=== PATIENT | female | born 1980 | race Caucasian/White ===

== ENCOUNTER 2020-01-07 21:25 | Emergency (ER) | payer OTHER ==
--- NOTE | 2020-01-07 21:38 | ED ---
Chest Pain HPI - General Stated Complaint: Chest Pain Time Seen by Provider: 01/07/20 21:33 Source: RN notes reviewed, old records reviewed - History of Present Illness Initial Comments: This is a 39-year-old female DF for evaluation of some chest pain. Patient presents by EMS the patient nitro and aspirin. Patient has history of CAD states history of COPD high blood pressure cholesterol chest pain is now resolved. No shortness of breath or diaphoresis. Patient admits to marijuana and alcohol use prior to chest pain beginning MD Complaint: chest pain -: minutes(s) Onset: during rest, associated with drug use Pain Location: substernal Severity: mild Severity scale (1-10): 3 Quality: tightness Consistency: now resolved Improves With: nothing Worsens With: nothing Anginal Symptoms: other (None) Other Symptoms: palpitations Treatments Prior to Arrival: aspirin, nitroglycerin - Related Data Home Medications Medication Instructions Recorded Confirmed Atorvastatin [Lipitor] 40 mg PO DAILY 01/07/20 01/07/20 Metoprolol Tartrate [Lopressor] 12.5 mg PO DAILY 01/07/20 01/07/20 Previous Rx's Medication Instructions Recorded Aspirin 81 mg PO DAILY #30 chew 10/31/15 Allergies Allergy/AdvReac Type Severity Reaction Status Date / Time epinephrine Allergy Unknown Verified 01/07/20 22:38 [From Epi E-Z Pen] meperidine HCl [From Demerol] Allergy Unknown Verified 01/07/20 22:38 venom-honey bee Allergy Unknown Verified 01/07/20 22:38 [bee venom (honey bee)] Review of Systems ROS Statement: Those systems with pertinent positive or pertinent negative responses have been documented in the HPI. ROS Other: All systems not noted in ROS Statement are negative. EKG Findings - EKG Comments: EKG Findings:: EKG is normal sinus rhythm rate 72 IA 158 QRS 82 QTC 429 Past Medical History Past Medical History: Coronary Artery Disease (CAD), Cancer, Hyperlipidemia, Hypertension Additional Past Medical History / Comment(s): breast cancer, hypoglycemia History of Any Multi-Drug Resistant Organisms: None Reported Past Surgical History: Adenoidectomy, Section, Cholecystectomy, Heart Catheterization With Stent, Tonsillectomy Past Anesthesia/Blood Transfusion Reactions: No Reported Reaction Past Psychological History: No Psychological Hx Reported Past Alcohol Use History: Occasional Past Drug Use History: Marijuana - Past Family History Mother Family Medical History: COPD Additional Family Medical History / Comment(s): drug addict, overdosed approximately 4 years ago General Exam General appearance: alert, in no apparent distress, anxious Head exam: Present: atraumatic, normocephalic, normal inspection Eye exam: Present: normal appearance, PERRL, EOMI. Absent: scleral icterus, conjunctival injection, periorbital swelling ENT exam: Present: normal exam, mucous membranes moist Neck exam: Present: normal inspection. Absent: tenderness, meningismus, lymphadenopathy Respiratory exam: Present: normal lung sounds bilaterally. Absent: respiratory distress, wheezes, rales, rhonchi, stridor Cardiovascular Exam: Present: regular rate, normal rhythm, normal heart sounds. Absent: systolic murmur, diastolic murmur, rubs, gallop, clicks GI/Abdominal exam: Present: soft, normal bowel sounds. Absent: distended, tenderness, guarding, rebound, rigid Extremities exam: Present: normal inspection, full ROM, normal capillary refill. Absent: tenderness, pedal edema, joint swelling, calf tenderness Back exam: Present: normal inspection Neurological exam: Present: alert, oriented X3, CN II-XII intact Psychiatric exam: Present: normal affect, normal mood Skin exam: Present: warm, dry, intact, normal color. Absent: rash Course Vital Signs 01/07/20 01/07/20 21:39 23:11 Temperature 99.3 F Pulse Rate 76 84 Respiratory 18 20 Rate Blood Pressure 111/84 109/88 O2 Sat by Pulse 97 97 Oximetry - Reevaluation(s) Reevaluation #1: Medical record is reviewed Pain is resolved Patient informed of results questions answered Patient offered observation refusing hospital admission Chest Pain MDM - [facility] 39-year-old female DEL with chest pain, patient admits to smoking some weed and drinking alcohol prior to starting of chest pain. Patient has history of CAD high blood pressure cholesterol, refusing inpatient admission Disposition Clinical Impression: Chest pain Disposition: HOME SELF-CARE Condition: Undetermined Instructions (If sedation given, give patient instructions): Chest Pain (ED) Is patient prescribed a controlled substance at d/c from ED?: No Referrals: Vern Win DO [Primary Care Provider] - 1-2 days
[2020-01-07 21:42] VITALS: TEMP 99.3
[2020-01-07 22:11] LABS: Basophils # (A) 0.1 k/uL (0-0.2); Basophils % (A) 0 %; Eosinophils # (A) 0.2 k/uL (0-0.7); Eosinophils % (A) 2 %; HCT 45.3 % (34.0-46.0); HGB 15.3 gm/dL (11.4-16.0); Lymphocytes # (A) 1.9 k/uL (1.0-4.8); Lymphocytes % (A) 12 %; MCH 31.9 pg (25.0-35.0); MCHC 33.8 g/dL (31.0-37.0); MCV 94.4 fL (80.0-100.0); Mean Platelet Volume 8.2; Monocytes # (A) 0.6 k/uL (0-1.0); Monocytes % (A) 4 %; Neutrophils # (A) 12.4 k/uL (1.3-7.7); Neutrophils % (A) 81 %; Platelet Count 319 k/uL (150-450); RDW 12.4 % (11.5-15.5); WBC 15.3 k/uL (3.8-10.6)
[2020-01-07 22:17] LABS: ALT 13 U/L (4-34); AST 20 U/L (14-36); African American GFR (CKD) >90 (>60 ml/min/1.73 sqM); Albumin 3.7 g/dL (3.5-5.0); Alkaline Phosphatase 65 U/L (38-126); Anion Gap 7 mmol/L; Blood Urea Nitrogen 11 mg/dL (7-17); Calcium 8.8 mg/dL (8.4-10.2); Carbon Dioxide 20 mmol/L (22-30); Chloride 107 mmol/L (98-107); Glucose 106 mg/dL (74-99); INR 0.9 (<1.2); Magnesium 1.9 mg/dL (1.6-2.3); Non-African American GFR(CKD) >90 (>60 ml/min/1.73 sqM); Partial Thromboplastin Time 22.4 sec (22.0-30.0); Potassium 4.1 mmol/L (3.5-5.1); Prothrombin Time 9.6 sec (9.0-12.0); Sodium 134 mmol/L (137-145); Total Bilirubin 0.6 mg/dL (0.2-1.3); Total Protein 6.3 g/dL (6.3-8.2)
--- NOTE | 2020-01-07 22:59 | XR ---
EXAMINATION TYPE: XR chest 2V DATE OF EXAM: 01/07/2020 COMPARISON: 10/29/2015 HISTORY: Chest pain TECHNIQUE: FINDINGS: Heart and mediastinum are normal. Lungs are clear. Diaphragm is normal. Bony thorax appears normal. Pulmonary vascularity is normal. IMPRESSION: Normal chest. No change.
[2020-01-07 23:12] VITALS: BP 109/88; PULSE 84; RESP 20
[2020-01-07] MEDS ORDERED: NITROGLYCERIN SL TABS 0.4 MG TAB SUBLINGUAL PRN (23:14)
[2020-01-07] MEDS ORDERED: ALPRAZolam 0.25 MG TAB PO PRN (23:14)
[2020-01-07] MEDS ORDERED: ASPIRIN 81 MG PO STA (23:14)
[2020-01-07] MEDS ORDERED: SODIUM CHLORIDE 0.9% 1,000 ML IV SCH (23:15)
[2020-01-08] MEDS ORDERED: ASPIRIN 325 MG TAB PO SCH (09:00)
[2020-01-08] MEDS ORDERED: METOPROLOL TARTRATE 25 MG TAB PO SCH (09:00)
== END 2020-01-07 23:32 | disposition home or self-care (01) ==
LOC: EC 21:25
DX: R07.89 Other chest pain (principal); I10 Essential (primary) hypertension; E78.5 Hyperlipidemia, unspecified; I25.10 Atherosclerotic heart disease of native coronary artery without angina pectoris; F12.90 Cannabis use, unspecified, uncomplicated; Z79.899 Other long term (current) drug therapy; Z91.030 Bee allergy status; Z88.5 Allergy status to narcotic agent; Z88.6 Allergy status to analgesic agent; Z95.5 Presence of coronary angioplasty implant and graft; Z85.3 Personal history of malignant neoplasm of breast; Z72.89 Other problems related to lifestyle
CPT/HCPCS: 36415; 71046; 80053; 83690; 83735; 83880; 84484; 85025; 85610; 85730; 93005; 99285

== ENCOUNTER 2020-11-03 03:52 | Inpatient (IN) | payer OTHER ==
--- NOTE | 2020-11-03 03:56 | ED ---
Chest Pain HPI - General Stated Complaint: Chest Pain Time Seen by Provider: 11/03/20 03:55 - Related Data Home Medications Medication Instructions Recorded Confirmed Atorvastatin [Lipitor] 40 mg PO DAILY 01/07/20 01/07/20 Metoprolol Tartrate [Lopressor] 12.5 mg PO DAILY 01/07/20 01/07/20 Previous Rx's Medication Instructions Recorded Aspirin 81 mg PO DAILY #30 chew 10/31/15 Allergies Allergy/AdvReac Type Severity Reaction Status Date / Time epinephrine Allergy Unknown Verified 01/07/20 22:38 [From Epi E-Z Pen] meperidine HCl [From Demerol] Allergy Unknown Verified 01/07/20 22:38 venom-honey bee Allergy Unknown Verified 01/07/20 22:38 [bee venom (honey bee)] Review of Systems ROS Statement: Those systems with pertinent positive or pertinent negative responses have been documented in the HPI. ROS Other: All systems not noted in ROS Statement are negative. EKG Findings - EKG Comments: EKG Findings:: EKG shows sinus bradycardia 52 NH 136 QRS 80 QTC 414 Past Medical History Past Medical History: Coronary Artery Disease (CAD), Cancer, Hyperlipidemia, Hypertension Additional Past Medical History / Comment(s): breast cancer, hypoglycemia History of Any Multi-Drug Resistant Organisms: None Reported Past Surgical History: Adenoidectomy, Section, Cholecystectomy, Heart Catheterization With Stent, Tonsillectomy Past Anesthesia/Blood Transfusion Reactions: No Reported Reaction Past Psychological History: No Psychological Hx Reported Past Alcohol Use History: Occasional Past Drug Use History: Marijuana - Past Family History Mother Family Medical History: COPD Additional Family Medical History / Comment(s): drug addict, overdosed approximately 4 years ago Course Vital Signs 11/03/20 11/03/20 03:54 04:17 Temperature 97.1 F L Pulse Rate 55 L 55 L Respiratory 20 18 Rate Blood Pressure 164/101 152/99 O2 Sat by Pulse 99 100 Oximetry Disposition Clinical Impression: Bradycardia, Chest pain, Elevated troponin, Acute non-ST elevation myocardial infarction (NSTEMI) Disposition: ADMITTED IP TO THIS HOSP Condition: Fair Is patient prescribed a controlled substance at d/c from ED?: No Referrals: Vern Win DO [Primary Care Provider] - 1-2 days
[2020-11-03] MEDS ORDERED: ONDANSETRON 4 MG/2 ML VIAL IVP STA (03:58)
[2020-11-03] MEDS ORDERED: LORazepam 2 MG/ML INJ IV STA (03:58)
[2020-11-03 04:21] LABS: Basophils # (A) 0.1 k/uL (0-0.2); Basophils % (A) 1 %; Eosinophils # (A) 0.3 k/uL (0-0.7); Eosinophils % (A) 2 %; HGB 14.4 gm/dL (11.4-16.0); Lymphocytes # (A) 3.3 k/uL (1.0-4.8); Lymphocytes % (A) 26 %; MCH 32.8 pg (25.0-35.0); MCHC 34.4 g/dL (31.0-37.0); MCV 95.4 fL (80.0-100.0); Mean Platelet Volume 8.2; Monocytes # (A) 0.5 k/uL (0-1.0); Monocytes % (A) 4 %; Neutrophils # (A) 8.4 k/uL (1.3-7.7); Neutrophils % (A) 66 %; Platelet Count 318 k/uL (150-450); RDW 12.8 % (11.5-15.5); WBC 12.6 k/uL (3.8-10.6)
[2020-11-03 04:33] LABS: INR 0.9 (<1.2); Partial Thromboplastin Time 23.6 sec (22.0-30.0); Prothrombin Time 9.5 sec (9.0-12.0)
[2020-11-03 04:35] LABS: ALT 12 U/L (4-34); African American GFR (CKD) >90 (>60 ml/min/1.73 sqM); Albumin 3.5 g/dL (3.5-5.0); Alcohol <10 mg/dL; Anion Gap 7 mmol/L; Blood Urea Nitrogen 8 mg/dL (7-17); Calcium 8.6 mg/dL (8.4-10.2); Carbon Dioxide 21 mmol/L (22-30); Chloride 110 mmol/L (98-107); Glucose 134 mg/dL (74-99); Lipase 61 U/L (23-300); Non-African American GFR(CKD) >90 (>60 ml/min/1.73 sqM); Sodium 138 mmol/L (137-145); Total Bilirubin 0.3 mg/dL (0.2-1.3); Total Protein 6.1 g/dL (6.3-8.2)
[2020-11-03 04:48] LABS: AST 21 U/L (14-36); Alkaline Phosphatase 75 U/L (38-126); Magnesium 1.8 mg/dL (1.6-2.3); Phosphorus 3.2 mg/dL (2.5-4.5); Potassium 3.8 mmol/L (3.5-5.1)
[2020-11-03] MEDS ORDERED: NITROGLYCERIN SL TABS 0.4 MG TAB SUBLINGUAL PRN ×2 (04:52→07:00)
[2020-11-03] MEDS ORDERED: MORPHINE SULFATE 4 MG/ML SYRINGE IV PRN (04:52)
[2020-11-03] MEDS ORDERED: HEPARIN SODIUM 1,000 UN/ML (10ML VL) IV ONE (04:52)
[2020-11-03] MEDS ORDERED: ASPIRIN 81 MG PO STA (04:52)
[2020-11-03] MEDS ORDERED: NITROGLYCERIN SL TABS 0.4 MG TAB SUBLINGUAL STA (05:00)
[2020-11-03] MEDS ORDERED: HEPARIN SOD,PORK IN 0.45% NACL 25,000 UNIT in 0.45% NACL 1 250ML.BAG IV SCH (05:00)
--- NOTE | 2020-11-03 05:08 | XR ---
EXAM: XR Chest, 2 Views CLINICAL HISTORY: ITS.REASON XR Reason: Weakness TECHNIQUE: Frontal and lateral views of the chest. COMPARISON: Chest radiograph on 01/07/2020 FINDINGS: Hardware: None. Lungs/pleura: Normal. No focal consolidation. No pleural effusion or pneumothorax. Heart/mediastinum: Normal. No cardiomegaly. Soft tissues: Unremarkable. Bones: No acute fracture. Upper abdomen: Normal. IMPRESSION: No acute disease identified.
--- NOTE | 2020-11-03 05:46 | P.CRDCN ---
History of Present Illness History of present illness: HISTORY OF PRESENTING ILLNESS This is a pleasant 40-year-old with past medical history significant for tobacco abuse, strong family history of coronary artery disease, coronary artery disease status post PCI of RCA 10/28/2015. Patient woke up this morning with substernal chest pressure which felt similar to her DC and therefore presented to emergency department. She denies any associated diaphoresis, shortness breath. She denies any association with any movement. She took 3 nitroglycerin at home without any improvement. Blood work showed white blood cell count 12.6, hemoglobin 14.4, creatinine 0.47, glucose 134, troponin 0.05, proBNP 75, alcohol less than 10. Initial EKG showed minimal 0.[address] elevation in 1 and aVL with minimal ST depressions in lead 3 and aVF. Repeat EKG showed no significant change. I was contacted secondary to ongoing chest pain and troponin resulting at 0.05. EKG did appear somewhat similar to EKG from 11/21/2015 but changed from 01/07/2020. Patient received 2 more nitroglycerin without any improvement in chest pain. REVIEW OF SYSTEMS At the time of my exam: CONSTITUTIONAL: Denies fever or chills. CARDIOVASCULAR: +chest pain, no shortness of breath, orthopnea, PND or palpitations. RESPIRATORY: Denies cough. GASTROINTESTINAL: Denies abdominal pain, diarrhea, constipation, nausea or vomiting. MUSCULOSKELETAL: Denies myalgias. NEUROLOGIC: Denies numbness, tingling or weakness. ENDOCRINE: Denies fatigue, weight change, polydipsia or polyurina. GENITOURINARY: Denies burning, hematuria or urgency with micturation. HEMATOLOGIC: Denies history of anemia or bleeding. PHYSICAL EXAMINATION Vital signs reviewed. CONSTITUTIONAL: No apparent distress. HEENT: Head is normocephalic. Pupils are equal, round. Sclerae anicteric. Mucous membranes of the mouth are moist. No JVD. No carotid bruit. CHEST EXAMINATION: Lungs are clear to auscultation. No chest wall tenderness is noted on palpation or with deep breathing. HEART EXAMINATION: Regular rate and rhythm. S1, S2 heard. No murmurs, gallops or rub. ABDOMEN: Soft, nontender. Positive bowel sounds. EXTREMITIES: 2+ peripheral pulses, no lower extremity edema and no calf tenderness. NEUROLOGIC EXAMINATION: Patient is awake, alert and oriented x3. ASSESSMENT 1. Non-STEMI 2. Coronary artery disease status post PCI of distal RCA 10/2015 3. Tobacco abuse 4. Hyperlipidemia PLAN Patient's initial EKG not meeting criteria for STEMI however is having ongoing chest pain with minimal troponin elevation. Discussed risks and benefits of procedure and patient is agreeable to left heart catheterization. Urgent left heart catheterization secondary to ongoing pain despite nitroglycerin. Further recommendations to follow. Check 2-D echo. Past Medical History Past Medical History: Coronary Artery Disease (CAD), Cancer, Hyperlipidemia, Hy pertension Additional Past Medical History / Comment(s): breast cancer, hypoglycemia History of Any Multi-Drug Resistant Organisms: None Reported Past Surgical History: Adenoidectomy, Section, Cholecystectomy, Heart Catheterization With Stent, Tonsillectomy Past Anesthesia/Blood Transfusion Reactions: No Reported Reaction Past Psychological History: No Psychological Hx Reported Past Alcohol Use History: Occasional Past Drug Use History: Marijuana - Past Family History Mother Family Medical History: COPD Additional Family Medical History / Comment(s): drug addict, overdosed approximately 4 years ago Medications and Allergies Home Medications Medication Instructions Recorded Confirmed Type Aspirin 81 mg PO DAILY #30 chew 10/31/15 01/07/20 Rx Atorvastatin [Lipitor] 40 mg PO DAILY 01/07/20 01/07/20 History Metoprolol Tartrate [Lopressor] 12.5 mg PO DAILY 01/07/20 01/07/20 History Allergies Allergy/AdvReac Type Severity Reaction Status Date / Time epinephrine Allergy Unknown Verified 01/07/20 22:38 [From Epi E-Z Pen] meperidine HCl [From Demerol] Allergy Unknown Verified 01/07/20 22:38 venom-honey bee Allergy Unknown Verified 01/07/20 22:38 [bee venom (honey bee)] Physical Exam Vitals: Vital Signs Temp Pulse Resp BP Pulse Ox 11/03/20 05:14 63 16 152/96 100 11/03/20 04:17 55 L 18 152/99 100 11/03/20 03:54 97.1 F L 55 L 20 164/101 99 Intake and Output 11/02/20 11/02/20 11/03/20 14:59 22:59 06:59 Other: Weight 74.843 kg Results 11/03/20 04:03 11/03/20 04:03 Cardiac Enzymes 11/03/20 11/03/20 Range/Units 04:03 04:03 AST 21 (14-36) U/L Troponin I 0.053 H* (0.000-0.034) ng/mL Coagulation 11/03/20 Range/Units 04:03 PT 9.5 (9.0-12.0) sec APTT 23.6 (22.0-30.0) sec CBC 11/03/20 Range/Units 04:03 WBC 12.6 H (3.8-10.6) k/uL RBC 4.40 (3.80-5.40) m/uL Hgb 14.4 (11.4-16.0) gm/dL Hct 42.0 (34.0-46.0) % Plt Count 318 (150-450) k/uL Comprehensive Metabolic Panel 11/03/20 Range/Units 04:03 Sodium 138 (137-145) mmol/L Potassium 3.8 (3.5-5.1) mmol/L Chloride 110 H (98-107) mmol/L Carbon Dioxide 21 L (22-30) mmol/L BUN 8 (7-17) mg/dL Creatinine 0.47 L (0.52-1.04) mg/dL Glucose 134 H (74-99) mg/dL Calcium 8.6 (8.4-10.2) mg/dL AST 21 (14-36) U/L ALT 12 (4-34) U/L Alkaline Phosphatase 75 (38-126) U/L Total Protein 6.1 L (6.3-8.2) g/dL Albumin 3.5 (3.5-5.0) g/dL Current Medications Generic Name Dose Route Start Last Admin Trade Name Freq PRN Reason Stop Dose Admin Aspirin 325 mg 11/04/20 09:00 Aspirin 325 Mg Tab PO DAILY ETHAN Atorvastatin Calcium 80 mg 11/03/20 09:00 Atorvastatin 80 Mg Tab PO DAILY ETHAN Sodium Chloride 1,000 mls @ 100 mls/hr 11/03/20 05:00 Saline 0.9% IV .Q10H ETHAN Heparin Sodium/Sodium Chloride 250 mls @ 8.981 mls/hr 11/03/20 05:00 11/03/20 05:10 25,000 unit/ Sodium Chloride IV 12 units/kg/hr .Q24H ETHAN 8.981 mls/hr Administration Protocol 12 UNITS/KG/HR Morphine Sulfate 4 mg 11/03/20 04:52 11/03/20 05:13 Morphine Sulfate 4 Mg/Ml Syringe IV 4 mg Q4HR PRN Administration Chest Pain Nitroglycerin 0.4 mg 11/03/20 04:52 Nitroglycerin Sl Tabs 0.4 Mg Tab SUBLINGUAL Q5M PRN Chest Pain Intake and Output 11/02/20 11/02/20 11/03/20 14:59 22:59 06:59 Other: Weight 74.843 kg Patient Weight 11/03/20 06:59 Weight 74.843 kg 11/03/20 04:03 11/03/20 04:03
[2020-11-03] MEDS ORDERED: VERAPAMIL 2.5 MG/ML 2 ML AMP ONE (05:53)
[2020-11-03] MEDS ORDERED: IV FLUID CONTINUATION 1,000 ML IV ONE (06:00)
[2020-11-03] MEDS ORDERED: fentaNYL (PF) 50 MCG/ML 2 ML AMP ONE (06:07)
[2020-11-03] MEDS ORDERED: fentaNYL (PF) 50 MCG/ML 2 ML AMP IVP ONE (06:12)
[2020-11-03] MEDS ORDERED: MIDAZOLAM 2 MG/2 ML VIAL IV ONE ×2 (06:12→06:41)
[2020-11-03] MEDS ORDERED: LIDOCAINE 1% INJ 10MG/ML (20 ML MDV) SQ ONE (06:13)
[2020-11-03] MEDS ORDERED: VERAPAMIL SYRINGE (5 MG/10 ML) INTRAARTER ONE (06:15)
[2020-11-03] MEDS ORDERED: IOPAMIDOL-370 125ML BTL INJ ONE (06:43)
[2020-11-03] MEDS ORDERED: CLOPIDOGREL 75 MG TAB ONE (06:46)
[2020-11-03] MEDS ORDERED: CLOPIDOGREL 75 MG TAB PO ONE (06:49)
[2020-11-03] MEDS ORDERED: IOPAMIDOL-370 100ML BTL INJ ONE (06:49)
[2020-11-03] MEDS ORDERED: ZOLPIDEM 5 MG TAB PO PRN (07:00)
[2020-11-03] MEDS ORDERED: RX INFO: IV CONTRAST WAS GIVEN 1 EACH MISC MISCELLANE PRN (07:00)
[2020-11-03] MEDS ORDERED: ATROPINE SULFATE 0.1 MG/ML 10ML SYRINGE IV PRN (07:00)
[2020-11-03] MEDS ORDERED: MAG HYDROX/AL HYDROX/SIMETH 30 ML CUP PO PRN (07:00)
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
[2020-11-03] MEDS: SODIUM CHLORIDE 0.9% 1,000 ML IV SCH ×2 (07:30→15:54)
[2020-11-03] MEDS: ATORVASTATIN 80 MG TAB PO SCH (09:10)
--- NOTE | 2020-11-03 09:51 | P.HPIM ---
History of Present Illness H&P Date: 11/03/20 Chief Complaint: Chest pain This is a 40 years old female who has history of coronary artery disease status post PROP DRAWER of RCA 10/28/2015 reported to the hospital with substernal chest pain that has been going on since earlier this morning. She reports the pain as sharp substernal moderate in severity. Pain fluctuated but at the time of examination patient is chest pain-free. She denies shortness of breath, no nausea vomiting dizziness or loss of consciousness. She denies subjective fever or chills. She denies hematuria dysuria hematemesis or hematochezia. She is status post cardiac catheterization. She is eating breakfast and does not appear to be in distress. Review of Systems 10 systems reviewed, pertinent positive and negative findings as in HPI. No abdominal pain, no nausea or vomiting Past Medical History Past Medical History: Coronary Artery Disease (CAD), Cancer, Hyperlipidemia, Hy pertension Additional Past Medical History / Comment(s): breast cancer, hypoglycemia History of Any Multi-Drug Resistant Organisms: None Reported Past Surgical History: Adenoidectomy, Section, Cholecystectomy, Heart Catheterization With Stent, Tonsillectomy Past Anesthesia/Blood Transfusion Reactions: No Reported Reaction Past Psychological History: No Psychological Hx Reported Past Alcohol Use History: Occasional Past Drug Use History: Marijuana - Past Family History Mother Family Medical History: COPD Additional Family Medical History / Comment(s): drug addict, overdosed approximately 4 years ago Medications and Allergies Home Medications Medication Instructions Recorded Confirmed Type Aspirin 81 mg PO DAILY #30 chew 10/31/15 11/03/20 Rx Atorvastatin [Lipitor] 40 mg PO DAILY 01/07/20 11/03/20 History Metoprolol Tartrate [Lopressor] 12.5 mg PO DAILY 01/07/20 11/03/20 History Allergies Allergy/AdvReac Type Severity Reaction Status Date / Time epinephrine Allergy Unknown Verified 11/03/20 09:34 [From Epi E-Z Pen] meperidine HCl [From Demerol] Allergy Unknown Verified 11/03/20 09:34 venom-honey bee Allergy Unknown Verified 11/03/20 09:34 [bee venom (honey bee)] Physical Exam Vitals: Vital Signs Temp Pulse Pulse Resp BP BP Pulse Ox 11/03/20 08:45 71 16 153/95 97 11/03/20 08:15 68 16 116/75 11/03/20 08:00 52 L 16 125/80 11/03/20 07:45 54 L 18 115/80 96 11/03/20 07:30 69 18 119/80 98 11/03/20 06:10 59 L 16 152/63 97 11/03/20 05:14 63 16 152/96 100 11/03/20 04:17 55 L 18 152/99 100 11/03/20 03:54 97.1 F L 55 L 20 164/101 99 Intake and Output 11/02/20 11/03/20 11/03/20 22:59 06:59 14:59 Intake Total 300 Balance 300 Intake: IV 300 Other: Voiding Method Toilet Weight 74.843 kg Constitutional: No acute distress, conversant, pleasant Eyes: Anicteric sclerae, moist conjunctiva, no lid-lag, PERRLA ENMT: NC/AT,Oropharynx clear, no erythema, exudates Neck:Supple, FROM, no masses, or JVD, No carotid bruits; Lungs: Clear to auscultation, Clear to percussion, Normal respiratory effort, no accessory muscle use Cardiovascular: Heart regular in rate and rhythm, No murmurs, gallops, or rubs no peripheral edema Abdominal: Soft Nontender, non distended, no guarding, no rebound or rigidity, Normoactive bowel sounds Skin: Normal temperature, tone, texture, turgor, No induration No subcutaneous nodules, No rash, lesions, No ulcers Extremities:No digital cyanosis No clubbing, Pedal pulses intact and symmetrical Radial pulses intact and symmetrical Normal gait and station, No calf tenderness Psychiatric: Alert and oriented to person, place and time, Appropriate affect Intact judgement Neuro: Muscles Strength 5/5 in all 4 extremities, Sensation to light touch grossly present throughout, Cranial nerves II-XII grossly intact. No focal sensory deficits Results CBC & Chem 7: 11/03/20 04:03 11/03/20 04:03 Labs: Abnormal Lab Results - Last 24 Hours (Table) 11/03/20 11/03/20 11/03/20 Range/Units 04:03 04:03 04:03 WBC 12.6 H (3.8-10.6) k/uL Neutrophils # 8.4 H (1.3-7.7) k/uL Chloride 110 H (98-107) mmol/L Carbon Dioxide 21 L (22-30) mmol/L Creatinine 0.47 L (0.52-1.04) mg/dL Glucose 134 H (74-99) mg/dL Troponin I 0.053 H* (0.000-0.034) ng/mL Total Protein 6.1 L (6.3-8.2) g/dL Assessment and Plan Plan: 1. No ST segment elevation ME with 95% stenosis of OM1 s/p PCI today 11/03/2020: Cardiology following, appreciate recommendations. Continue aspirin and statin Plavix Toprol and nitroglycerin 2. Insomnia: Continue Ambien when necessary 3. Obesity: BMI 30.2 4. Mild leukocytosis: WBC 12.6, likely reactive. Monitor 5. Tobacco use/dependence without evidence of withdrawal: Monitor supportive care. DVT prophylaxis: SCDs Disposition: Pending clinical progression
[2020-11-03 10:15] VITALS: BMI 30.2
[2020-11-03] MEDS: METOPROLOL TARTRATE 12.5 MG TAB PO SCH (11:05)
--- NOTE | 2020-11-03 11:42 | ECHOF ---
Referral Reason:NSTEMI s/p PCI MEASUREMENTS -------- HEIGHT: 157.5 cm WEIGHT: 74.8 kg BP: RVIDd: 2.5 cm (< 3.3) IVSd: 1.3 cm (0.6 - 1.1) LVIDd: 3.7 cm (3.9 - 5.3) LVPWd: 1.5 cm (0.6 - 1.1) IVSs: 2.0 cm LVIDs: 2.2 cm LVPWs: 1.9 cm LAESV Index (A-L): 15.05 ml/m Ao Diam: 3.0 cm (2.0 - 3.7) AV Cusp: 2.0 cm (1.5 - 2.6) LA Diam: 3.4 cm (2.7 - 3.8) MV EXCURSION: 11.800 mm (> 18.000) MV EF SLOPE: 75 mm/s (70 - 150) EPSS: 0.5 cm MV E James: 0.83 m/s MV DecT: 216 ms MV A James: 0.61 m/s MV E/A Ratio: 1.35 AR PHT: 1319 ms RAP: 5.00 mmHg RVSP: 8.72 mmHg FINDINGS -------- This was a technically adequate study. The left ventricular size is normal. There is mild concentric left ventricular hypertrophy. Overa ll left ventricular systolic function is normal with, an EF between 55 - 60 %. The diastolic fillin g pattern is normal for the age of the patient 11.11. The right ventricle is normal in size. The left atrial size is normal. Normal LA size by volume 22+/-6 ml/m2. The right atrial size is normal. The aortic valve is trileaflet and appears structurally normal. There is mild aortic regurgitation. The mitral valve is normal. Mild mitral regurgitation is present. The tricuspid valve appears structurally normal. Trace tricuspid regurgitation present. Right jennie tricular systolic pressure is normal at < 35 mmHg. There is no pulmonic regurgitation present. The aortic root size is normal. Normal inferior vena cava with normal inspiratory collapse consistent with estimated right atrial pre ssure of 5 mmHg. There is no pericardial effusion. CONCLUSIONS -------- 1. The left ventricular size is normal. 2. There is mild concentric left ventricular hypertrophy. 3. Overall left ventricular systolic function is normal with, an EF between 55 - 60 %. 4. The diastolic filling pattern is normal for the age of the patient 11.11 5. There is mild aortic regurgitation. 6. Mild mitral regurgitation is present. 7. Trace tricuspid regurgitation present. 8. There is no pericardial effusion. SCRAP PREPARER: Mely Belle RDCS
[2020-11-03 13:23] LABS: Appearance,Urine Clear (Clear); Bilirubin,Urine Negative (Negative); Blood,Urine Negative (Negative); Color,Urine Yellow; Glucose,Urine (UA) Negative (Negative); Ketones,Urine Negative (Negative); Leukocyte Esterase,Urine Negative (Negative); Nitrite,Urine Negative (Negative); Protein,Urine Trace (Negative); Specific Gravity,Urine 1.044 (1.001-1.035); Urobilinogen,Urine <2.0 mg/dL (<2.0)
[2020-11-03] MEDS ORDERED: ACETAMINOPHEN TAB 325 MG TAB PO PRN (20:11)
[2020-11-04] MEDS: SODIUM CHLORIDE 0.9% 1,000 ML IV SCH (03:22)
[2020-11-04 08:18] VITALS: BP 122/90; PULSE 67; RESP 16; TEMP 97.9
[2020-11-04] MEDS: METOPROLOL TARTRATE 12.5 MG TAB PO SCH (08:20)
[2020-11-04] MEDS: ATORVASTATIN 80 MG TAB PO SCH (08:20)
[2020-11-04] MEDS ORDERED: ASPIRIN 81 MG PO SCH (09:00)
[2020-11-04] MEDS ORDERED: CLOPIDOGREL 75 MG TAB PO SCH (09:00)
[2020-11-04] MEDS ORDERED: ASPIRIN 325 MG TAB PO SCH (09:00)
--- NOTE | 2020-11-04 10:12 | P.DS ---
Providers Date of admission: 11/03/20 04:54 Attending physician: Malcolm Luz MD Consults: 11/03/20 04:52 Consult Physician Urgent Consulting Provider: Mariam Mercado Consult Reason/Comments: elevTeranin Do you want consulting provider notified?: Yes 11/03/20 07:01 Consult Physician Routine Consulting Provider: [facility] Consult Reason/Comments: Post Interventional patient Do you want consulting provider notified?: Already Contacted Primary care physician: Vern Highland Hospital Course: HPI: This is a 40 years old female who has history of coronary artery disease status post [employer] of RCA 10/28/2015 reported to the hospital with substernal chest pain that has been going on since earlier this morning. She reports the pain as sharp substernal moderate in severity. Pain fluctuated but at the time of examination patient is chest pain-free. She denies shortness of breath, no nausea vomiting dizziness or loss of consciousness. She denies subjective fever or chills. She denies hematuria dysuria hematemesis or hematochezia. She is status post cardiac catheterization. She is eating breakfast and does not appear to be in distress. Hospital course and treatment: Patient was admitted to the hospital with chest pain, she was found to have a non-ST segment elevation [place]. She was taken to the [facility] as she has history of coronary artery disease status post PCI of distal RCA 10/2015 she was found to have SELECTIVE CORONARY ARTERIOGRAPHY: LEFT MAIN: The left main is a large caliber vessel which bifurcates into the LAD and circumflex. There is no significant stenosis. LEFT ANTERIOR DESCENDING CORONARY ARTERY: LAD is a large caliber vessel which wraps around to the apex. There are mild 10-20% stenosis. LEFT CIRCUMFLEX CORONARY ARTERY: Left circumflex is a moderate caliber vessel with mild 20% stenosis. There is 95% stenosis of the mid OM1. RIGHT CORONARY ARTERY: The right coronary artery is a large caliber vessel which gives off a PDA and PLV branch and is the dominant vessel. There is a patent distal RCA stent with mild luminal irregularities. FINAL IMPRESSION: 1. CAD as described above with 95% stenosis of OM1 s/p PCI with 2.0 x 15mm [place] PAIGE She was continued on aspirin, Plavix was added. She was continued on beta blockers, statins were adjusted. Medications were adjusted. Cardiology. Chest pain resolved. She remained hemodynamically stable. She had mild leukocytosis which is likely reactive. She will be discharged home if cleared by cardiology with follow-up Diagnoses upon discharge: 1. Non-ST segment elevation [place] 2. Mild leukocytosis likely reactive 3. Obesity BMI 30.2 4. Tobacco use/dependence without withdrawal 5. Insomnia Patient Condition at Discharge: Stable Plan - Discharge Summary Discharge Rx Participant: Yes New Discharge Prescriptions: New Nitroglycerin Sl Tabs [Nitrostat] 0.4 mg SUBLINGUAL Q5M PRN 30 Days #30 tab PRN Reason: Chest Pain Atorvastatin [Lipitor] 80 mg PO DAILY 30 Days #30 tab Clopidogrel [Plavix] 75 mg PO DAILY 30 Days #30 tab Continue Aspirin 81 mg PO DAILY #30 chew Metoprolol Tartrate [Lopressor] 12.5 mg PO DAILY 30 Days #30 tab Discontinued Atorvastatin [Lipitor] 40 mg PO DAILY Discharge Medication List Aspirin 81 mg PO DAILY #30 chew 11/04/20 [Rx] Atorvastatin [Lipitor] 80 mg PO DAILY 30 Days #30 tab 11/04/20 [Rx] Clopidogrel [Plavix] 75 mg PO DAILY 30 Days #30 tab 11/04/20 [Rx] Metoprolol Tartrate [Lopressor] 12.5 mg PO DAILY 30 Days #30 tab 11/04/20 [Rx] Nitroglycerin Sl Tabs [Nitrostat] 0.4 mg SUBLINGUAL Q5M PRN 30 Days #30 tab 11/04/20 [Rx] Follow up Appointment(s)/Referral(s): Vern Win DO [Primary Care Provider] - 1-2 days Maxwell Mistry MD [STAFF PHYSICIAN] - 1 Week Discharge Disposition: HOME SELF-CARE Care Plan Goals (MU): Discharge Once cleared by cardiology
[2020-11-04 10:21] LABS: Basophils % (A) 0 %; Eosinophils # (A) 0.1 k/uL (0-0.7); Eosinophils % (A) 1 %; HCT 41.3 % (34.0-46.0); HGB 13.9 gm/dL (11.4-16.0); Lymphocytes % (A) 27 %; MCH 32.4 pg (25.0-35.0); MCHC 33.7 g/dL (31.0-37.0); MCV 96.1 fL (80.0-100.0); Mean Platelet Volume 8.4; Monocytes # (A) 0.4 k/uL (0-1.0); Monocytes % (A) 6 %; Neutrophils # (A) 4.7 k/uL (1.3-7.7); Neutrophils % (A) 64 %; Platelet Count 314 k/uL (150-450); RDW 12.8 % (11.5-15.5); WBC 7.4 k/uL (3.8-10.6)
--- NOTE | 2020-11-04 10:31 | P.PN ---
Subjective Progress Note Date: 11/04/20 HISTORY OF PRESENT ILLNESS: This is a 40-year-old female with history of coronary artery disease and previous stenting to the RCA in 2016. Patient underwent cardiac catheterization with Dr. Fountain with PCI to the OM1. Patient examined this morning at the bedside. She denies shortness of breath. She has been up ambulating in her room. Echocardiogram completed revealed ejection fraction 55-60%. Vital signs are stable. PHYSICAL EXAM: VITAL SIGNS: Reviewed. GENERAL: Well-developed in no acute distress. NECK: Supple. No JVD or thyromegaly LUNGS: Respirations even and unlabored. Lungs essentially clear to auscultation bilaterally. HEART: Regular rate and rhythm. S1 and S2 heard. EXTREMITIES: Normal range of motion. No clubbing or cyanosis. Peripheral pulses intact. No lower extremity edema. Right radial Site with pulse present. ASSESSMENT: Non-STEMI, status post PCI to OM1 Coronary artery disease with previous PCI of RCA in 2016 Nicotine dependence Hyperlipidemia PLAN: Continue antiplatelet therapy with Aspirin and Plavix Continue Lipitor and Lopressor Increase activity as tolerated Patient may be discharged home this afternoon Patient to follow up on an outpatient basis She may follow up with Dr. Fountain as it has been greater than 3 years since she has been seen in the office with Dr. Mistry. Nurse practitioner note has been reviewed by physician. Signing provider agrees with the documented findings, assessment, and plan of care. Objective - Vital Signs Vital signs: Vital Signs Temp 97.9 F 11/04/20 08:17 Pulse 67 11/04/20 08:17 Resp 16 11/04/20 08:17 BP 122/90 11/04/20 08:17 Pulse Ox 96 11/04/20 08:17 Intake & Output 11/03/20 11/04/20 11/04/20 18:59 06:59 18:59 Intake Total 680 240 Balance 680 240 Weight 74.843 kg 83 kg Intake: Oral 680 240 Other: Voiding Method Toilet Toilet # Voids 2 - Labs CBC & Chem 7: 11/04/20 08:45 11/03/20 04:03 Labs: Abnormal Lab Results - Last 24 Hours (Table) 11/03/20 11/03/20 11/03/20 Range/Units 04:03 09:15 11:58 Troponin I 17.000 H* 29.100 H* (0.000-0.034) ng/mL Ur Specific [place] 1.044 H (1.001-1.035) Urine Protein Trace H (Negative)
[2020-11-04 10:40] LABS: ALT 58 U/L (4-34); AST 81 U/L (14-36); African American GFR (CKD) >90 (>60 ml/min/1.73 sqM); Albumin 3.4 g/dL (3.5-5.0); Alkaline Phosphatase 68 U/L (38-126); Anion Gap 6 mmol/L; Blood Urea Nitrogen 5 mg/dL (7-17); Calcium 8.5 mg/dL (8.4-10.2); Carbon Dioxide 21 mmol/L (22-30); Chloride 111 mmol/L (98-107); Glucose 96 mg/dL (74-99); Non-African American GFR(CKD) >90 (>60 ml/min/1.73 sqM); Potassium 4.2 mmol/L (3.5-5.1); Sodium 138 mmol/L (137-145); Total Bilirubin 0.3 mg/dL (0.2-1.3); Total Protein 5.9 g/dL (6.3-8.2)
[2020-11-04 17:39] LABS: Chol/HDL Ratio 5.81; Cholesterol 186 mg/dL (0-200); LDL Cholesterol,Calculated 129.2 mg/dL (0.0-131.0)
== END 2020-11-04 13:28 | disposition home or self-care (01) | DRG 247 ==
LOC: EC 03:52 → 3SCARD 04:54
PROVIDERS: ADMIT Internal Medicine; ATTEND Internal Medicine
PROC: 027034Z Dilation of Coronary Artery, One Artery with Drug-eluting Intraluminal Device, Percutaneous Approach (ICD-10-PCS; principal; 2020-11-03 05:46)
PROC: B2111ZZ Fluoroscopy of Multiple Coronary Arteries using Low Osmolar Contrast (ICD-10-PCS; 2020-11-03 05:46)
DX: I21.4 Non-ST elevation (NSTEMI) myocardial infarction (principal); Z79.82 Long term (current) use of aspirin; I25.10 Atherosclerotic heart disease of native coronary artery without angina pectoris; I10 Essential (primary) hypertension; E78.5 Hyperlipidemia, unspecified; Z85.3 Personal history of malignant neoplasm of breast; Z82.5 Family history of asthma and other chronic lower respiratory diseases; R00.1 Bradycardia, unspecified; Z20.822 Contact with and (suspected) exposure to COVID-19; Z95.5 Presence of coronary angioplasty implant and graft; G47.00 Insomnia, unspecified; E66.9 Obesity, unspecified; Z68.30 Body mass index [BMI] 30.0-30.9, adult; Z72.0 Tobacco use; D72.829 Elevated white blood cell count, unspecified
CPT/HCPCS: 36415; 71046; 80053; 80061; 80320; 81003; 83605; 83690; 83735; 83880; 84100; 84484; 85025; 85610; 85730; 87635; 93005; 93306; 93458; 96374; 96375; 99285

== ENCOUNTER 2020-11-26 02:11 | Emergency (ER) | payer OTHER ==
[2020-11-26 02:18] VITALS: RESP 20; TEMP 97.9
--- NOTE | 2020-11-26 02:39 | ED ---
Chest Pain HPI - General Chief Complaint: Chest Pain Stated Complaint: vomiting, rapid heart rate Time Seen by Provider: 11/26/20 02:27 Source: patient, family Mode of arrival: wheelchair Limitations: no limitations - History of Present Illness MD Complaint: chest pain -: hour(s) Onset: during rest Pain Location: substernal Pain Radiation: none Severity: moderate Quality: aching Consistency: constant Improves With: nothing Anginal Symptoms: nausea Treatments Prior to Arrival: none - Related Data Previous Rx's Medication Instructions Recorded Aspirin 81 mg PO DAILY #30 chew 11/04/20 Atorvastatin [Lipitor] 80 mg PO DAILY 30 Days #30 tab 11/04/20 Clopidogrel [Plavix] 75 mg PO DAILY 30 Days #30 tab 11/04/20 Metoprolol Tartrate [Lopressor] 12.5 mg PO DAILY 30 Days #30 tab 11/04/20 Nitroglycerin Sl Tabs [Nitrostat] 0.4 mg SUBLINGUAL Q5M PRN 30 Days 11/04/20 #30 tab Allergies Allergy/AdvReac Type Severity Reaction Status Date / Time epinephrine Allergy Unknown Verified 11/26/20 02:18 [From Epi E-Z Pen] meperidine HCl [From Demerol] Allergy Unknown Verified 11/26/20 02:18 venom-honey bee Allergy Unknown Verified 11/26/20 02:18 [bee venom (honey bee)] Review of Systems ROS Statement: Those systems with pertinent positive or pertinent negative responses have been documented in the HPI. ROS Other: All systems not noted in ROS Statement are negative. Constitutional: Denies: fever, chills Respiratory: Denies: cough, dyspnea Cardiovascular: Reports: chest pain. Denies: palpitations, edema, syncope Gastrointestinal: Reports: nausea. Denies: abdominal pain, vomiting, diarrhea Genitourinary: Denies: dysuria, hematuria Musculoskeletal: Denies: back pain Skin: Denies: rash Neurological: Denies: headache, weakness, numbness EKG Findings - EKG Results: EKG: interpreted by LEO, sinus rhythm, normal axis, normal QRS, normal ST/T Past Medical History Past Medical History: Coronary Artery Disease (CAD), Cancer, Hyperlipidemia, Hypertension Additional Past Medical History / Comment(s): breast cancer, hypoglycemia History of Any Multi-Drug Resistant Organisms: None Reported Past Surgical History: Adenoidectomy, Section, Cholecystectomy, Heart Catheterization With Stent, Tonsillectomy Past Anesthesia/Blood Transfusion Reactions: No Reported Reaction Date of Last Stent Placement:: 11/03/20 Past Psychological History: No Psychological Hx Reported Smoking Status: Current some day smoker Past Alcohol Use History: Rare Past Drug Use History: Marijuana - Past Family History Mother Family Medical History: COPD Additional Family Medical History / Comment(s): drug addict, overdosed approximately 4 years ago General Exam Limitations: no limitations General appearance: alert, in no apparent distress Head exam: Present: atraumatic, normocephalic Eye exam: Present: normal appearance. Absent: scleral icterus, conjunctival injection Respiratory exam: Present: normal lung sounds bilaterally. Absent: respiratory distress, wheezes, rales, rhonchi, stridor Cardiovascular Exam: Present: regular rate, normal rhythm, normal heart sounds. Absent: systolic murmur, diastolic murmur, rubs, gallop GI/Abdominal exam: Present: soft. Absent: distended, tenderness, guarding, rebound, rigid, organomegaly, mass Extremities exam: Present: normal inspection, normal capillary refill. Absent: pedal edema, calf tenderness Back exam: Present: normal inspection. Absent: CVA tenderness (R), CVA tenderness (L) Neurological exam: Present: alert Skin exam: Present: warm, dry, intact, normal color. Absent: rash Course Vital Signs 11/26/20 11/26/20 02:14 04:27 Temperature 97.9 F Pulse Rate 70 61 Respiratory 20 20 Rate Blood Pressure 123/90 120/80 O2 Sat by Pulse 99 98 Oximetry Disposition Clinical Impression: Chest pain Disposition: HOME SELF-CARE Condition: Good Instructions (If sedation given, give patient instructions): Chest Pain (ED) Is patient prescribed a controlled substance at d/c from ED?: No Referrals: Vern Win DO [Primary Care Provider] - 1-2 days
[2020-11-26 03:28] LABS: Basophils # (A) 0.1 k/uL (0-0.2); Basophils % (A) 1 %; Eosinophils # (A) 0.1 k/uL (0-0.7); Eosinophils % (A) 1 %; HCT 43.8 % (34.0-46.0); HGB 14.4 gm/dL (11.4-16.0); Lymphocytes # (A) 2.6 k/uL (1.0-4.8); Lymphocytes % (A) 25 %; MCH 31.2 pg (25.0-35.0); MCV 94.4 fL (80.0-100.0); Mean Platelet Volume 7.8; Monocytes # (A) 0.5 k/uL (0-1.0); Monocytes % (A) 5 %; Neutrophils % (A) 67 %; Platelet Count 359 k/uL (150-450); RBC 4.64 m/uL (3.80-5.40); WBC 10.4 k/uL (3.8-10.6)
--- NOTE | 2020-11-26 03:30 | XR ---
EXAMINATION TYPE: XR chest 2V DATE OF EXAM: 11/26/2020 COMPARISON: 11/03/2020 HISTORY: Chest pain TECHNIQUE: 2 views FINDINGS: heart and mediastinum are normal. Lungs are clear. Diaphragm is normal. Bony thorax appears intact. P ulmonary vascularity is normal. IMPRESSION: Normal chest. No change.
[2020-11-26 03:37] LABS: ALT 16 U/L (4-34); AST 23 U/L (14-36); African American GFR (CKD) >90 (>60 ml/min/1.73 sqM); Albumin 3.8 g/dL (3.5-5.0); Alkaline Phosphatase 86 U/L (38-126); Anion Gap 7 mmol/L; Blood Urea Nitrogen 9 mg/dL (7-17); Calcium 9.1 mg/dL (8.4-10.2); Carbon Dioxide 24 mmol/L (22-30); Chloride 109 mmol/L (98-107); Glucose 114 mg/dL (74-99); Non-African American GFR(CKD) >90 (>60 ml/min/1.73 sqM); Potassium 3.8 mmol/L (3.5-5.1); Sodium 140 mmol/L (137-145); Total Bilirubin 0.3 mg/dL (0.2-1.3); Total Protein 6.4 g/dL (6.3-8.2)
[2020-11-26 03:44] LABS: INR 0.9 (<1.2); Partial Thromboplastin Time 24.7 sec (22.0-30.0); Prothrombin Time 9.6 sec (9.0-12.0)
[2020-11-26 04:33] VITALS: BP 120/80; PULSE 61
== END 2020-11-26 04:32 | disposition home or self-care (01) ==
LOC: EC 02:11
DX: R07.2 Precordial pain (principal); R00.0 Tachycardia, unspecified; R11.0 Nausea; I10 Essential (primary) hypertension; F17.200 Nicotine dependence, unspecified, uncomplicated; Z91.030 Bee allergy status; Z88.5 Allergy status to narcotic agent; Z88.8 Allergy status to other drugs, medicaments and biological substances
CPT/HCPCS: 36415; 71046; 80053; 83735; 84484; 85025; 85610; 85730; 93005; 99285

== ENCOUNTER → 2021-04-19 | Outpatient (CLI) | payer OTHER ==
[2021-04-19 15:18] LABS: Chol/HDL Ratio 3.88 Ratio; LDL Cholesterol,Calculated 91.5 mg/dL (0.0-131.0); VLDL Calculation 16.88 mg/dL (5.00-40.00)
== END | disposition home or self-care (01) ==
LOC: LABWHC1 09:12
PROVIDERS: ATTEND Internal Medicine
DX: I25.10 Atherosclerotic heart disease of native coronary artery without angina pectoris (principal)
CPT/HCPCS: 36415; 80061

== ENCOUNTER 2021-11-05 21:42 | Observation (INO) | payer OTHER ==
--- NOTE | 2021-11-05 21:58 | ED ---
Chest Pain HPI - General Chief Complaint: Chest Pain Stated Complaint: Chest pain Time Seen by Provider: 11/05/21 21:50 Source: patient, RN notes reviewed, old records reviewed Mode of arrival: ambulatory Limitations: no limitations - History of Present Illness Initial Comments: This is a 41-year-old female to the emergency department for evaluation regards to chest pain. Patient suffered pressure anterior chest 4-5 hours as well as left shoulder pain for 2 days. Patient has history of 2 prior stents 11 year ago 1 round to light 12 years ago. No shortness of breath. Patient states history of prior events she did not have any pain there were usually found on abnormal lab values, patient did have a stress test this year which was unremarkable per the patient. At this time patient is still experiencing left- sided chest pain which she describes as heaviness MD Complaint: chest pain -: hour(s) Onset: during rest Pain Location: substernal, left chest Pain Radiation: LUE Severity: mild Severity scale (1-10): 3 Quality: tightness Consistency: constant Improves With: nothing Worsens With: nothing Context: recent illness Anginal Symptoms: nausea Other Symptoms: cough Treatments Prior to Arrival: none - Related Data Previous Rx's Medication Instructions Recorded Aspirin 81 mg PO DAILY #30 chew 11/04/20 Atorvastatin [Lipitor] 80 mg PO DAILY 30 Days #30 tab 11/04/20 Clopidogrel [Plavix] 75 mg PO DAILY 30 Days #30 tab 11/04/20 Metoprolol Tartrate [Lopressor] 12.5 mg PO DAILY 30 Days #30 tab 11/04/20 Nitroglycerin Sl Tabs [Nitrostat] 0.4 mg SUBLINGUAL Q5M PRN 30 Days 11/04/20 #30 tab Allergies Allergy/AdvReac Type Severity Reaction Status Date / Time epinephrine Allergy Unknown Verified 11/05/21 21:52 [From Epi E-Z Pen] meperidine HCl [From Demerol] Allergy Unknown Verified 11/05/21 21:52 venom-honey bee Allergy Unknown Verified 11/05/21 21:52 [bee venom (honey bee)] Review of Systems ROS Statement: Those systems with pertinent positive or pertinent negative responses have been documented in the HPI. ROS Other: All systems not noted in ROS Statement are negative. EKG Findings - EKG Comments: EKG Findings:: EKG is sinus rhythm 62 [place] 153 QRS 83 QTc 406 Past Medical History Past Medical History: Coronary Artery Disease (CAD), Cancer, Hyperlipidemia, Hypertension Additional Past Medical History / Comment(s): breast cancer, hypoglycemia History of Any Multi-Drug Resistant Organisms: None Reported Past Surgical History: Adenoidectomy, Section, Cholecystectomy, Heart Catheterization With Stent, Tonsillectomy Past Anesthesia/Blood Transfusion Reactions: No Reported Reaction Date of Last Stent Placement:: 11/03/20 Past Psychological History: No Psychological Hx Reported Smoking Status: Current some day smoker Past Alcohol Use History: Rare Past Drug Use History: Marijuana - Past Family History Mother Family Medical History: COPD Additional Family Medical History / Comment(s): drug addict, overdosed approximately 4 years ago General Exam General appearance: alert, in no apparent distress, anxious Head exam: Present: atraumatic, normocephalic, normal inspection Eye exam: Present: normal appearance, PERRL, EOMI. Absent: scleral icterus, conjunctival injection, periorbital swelling ENT exam: Present: normal exam, mucous membranes moist Neck exam: Present: normal inspection. Absent: tenderness, meningismus, lymphadenopathy Respiratory exam: Present: normal lung sounds bilaterally. Absent: respiratory distress, wheezes, rales, rhonchi, stridor Cardiovascular Exam: Present: regular rate, normal rhythm, normal heart sounds. Absent: systolic murmur, diastolic murmur, rubs, gallop, clicks GI/Abdominal exam: Present: soft, normal bowel sounds. Absent: distended, tenderness, guarding, rebound, rigid Extremities exam: Present: normal inspection, full ROM, normal capillary refill. Absent: tenderness, pedal edema, joint swelling, calf tenderness Back exam: Present: normal inspection Neurological exam: Present: alert, oriented X3, CN II-XII intact Psychiatric exam: Present: normal affect, normal mood Skin exam: Present: warm, dry, intact, normal color. Absent: rash Course Vital Signs 11/05/21 21:48 Temperature 98 F Pulse Rate 66 Respiratory 19 Rate Blood Pressure 143/92 O2 Sat by Pulse 99 Oximetry - Reevaluation(s) Reevaluation #1: 11/05/21 22:32 Medical records reviewed Reevaluation #2: 11/06/21 00:20 Patient's continued chest pain here in the emergency room 11/06/21 00:20 Patient does not for comfortable with discharge to this chest pain and how correlates with her prior Reevaluation #3: 11/06/21 00:20 Patient is informed of results and questions are answered - Consultations Consultation #1: Spoke with EM who agreed to admit this patient Chest Pain MDM - MDM 41 female coming in with typical chest pain left-sided chest pain and pressure to her back and shoulder. History of ACS to prior stents. Patient missed a lot of stress this week states she's had heart attacks to distress in the past. Patient be admitted for cardiac observation Critical Care Time Critical Care Time: Yes Total Critical Care Time: 31 Disposition Clinical Impression: Chest pain, CAD (coronary artery disease) Disposition: ADMITTED IP TO THIS [facility] Instructions (If sedation given, give patient instructions): Chest Pain (ED) Is patient prescribed a controlled substance at d/c from ED?: No Referrals: Vern Win DO [Primary Care Provider] - 1-2 days
[2021-11-05 23:00] LABS: Basophils # (A) 0.1 k/uL (0-0.2); Basophils % (A) 1 %; Eosinophils # (A) 0.1 k/uL (0-0.7); Eosinophils % (A) 1 %; Lymphocytes # (A) 3.6 k/uL (1.0-4.8); Lymphocytes % (A) 39 %; MCHC 33.4 g/dL (31.0-37.0); MCV 98.8 fL (80.0-100.0); Mean Platelet Volume 8.5; Monocytes # (A) 0.5 k/uL (0-1.0); Monocytes % (A) 5 %; Neutrophils # (A) 4.9 k/uL (1.3-7.7); Neutrophils % (A) 53 %; Platelet Count 248 k/uL (150-450); RBC 4.25 m/uL (3.80-5.40); RDW 12.8 % (11.5-15.5); WBC 9.2 k/uL (3.8-10.6)
[2021-11-05 23:04] LABS: INR 0.9 (<1.2); Prothrombin Time 10.4 sec (9.0-12.0)
[2021-11-05 23:13] LABS: ALT 13 U/L (4-34); AST 18 U/L (14-36); African American GFR (CKD) >90 (>60 ml/min/1.73 sqM); Albumin 3.4 g/dL (3.5-5.0); Alkaline Phosphatase 70 U/L (38-126); Anion Gap 3 mmol/L; Blood Urea Nitrogen 9 mg/dL (7-17); Calcium 8.3 mg/dL (8.4-10.2); Carbon Dioxide 25 mmol/L (22-30); Chloride 109 mmol/L (98-107); Glucose 92 mg/dL (74-99); Lipase 59 U/L (23-300); Magnesium 2.1 mg/dL (1.6-2.3); Non-African American GFR(CKD) >90 (>60 ml/min/1.73 sqM); Potassium 3.8 mmol/L (3.5-5.1); Sodium 137 mmol/L (137-145); Total Bilirubin 0.2 mg/dL (0.2-1.3); Total Protein 5.7 g/dL (6.3-8.2)
[2021-11-06] MEDS ORDERED: ASPIRIN 81 MG PO STA (00:16)
[2021-11-06] MEDS ORDERED: NITROGLYCERIN SL TABS 0.4 MG TAB SUBLINGUAL PRN ×2 (00:16→00:26)
--- NOTE | 2021-11-06 00:33 | XR ---
EXAMINATION TYPE: XR chest 2V DATE OF EXAM: 11/05/2021 COMPARISON: 11/26/2020 HISTORY: Chest tightness chest pain TECHNIQUE: FINDINGS: Heart and mediastinum are normal. Lungs are clear. Diaphragm is normal. Bony thorax appears normal. There are chest leads. IMPRESSION: Normal chest. No change.
[2021-11-06] MEDS ORDERED: DOBUTamine DRIP for NUC MED 500 MG/250 ML BAG IV ONE (08:00)
[2021-11-06] MEDS ORDERED: SODIUM CHLORIDE 0.9% 1,000 ML IV STA (08:49)
[2021-11-06] MEDS ORDERED: ATORVASTATIN 80 MG TAB PO SCH (09:00)
[2021-11-06] MEDS: CLOPIDOGREL 75 MG TAB PO SCH (09:01)
[2021-11-06] MEDS: ATORVASTATIN 80 MG TAB PO SCH (09:01)
--- NOTE | 2021-11-06 10:35 | P.CRDCN ---
History of Present Illness History of present illness: - . HPI: This is a 41-year-old lady with a known history of CAD and PCI of RCA in the posterior and also as recently as October 2020 she underwent stenting of obtuse marginal 1. RCA PCI was in 2016. She smokes has cut down to about 6 cigarettes a day. She has hypertension hyperlipidemia. She came into the hospital because of left shoulder pain that then seemed to migrate towards the midsternal area. Quality of pain is atypical troponins are normal and EKG is unremarkable but she has significant risk factors. In view of her episode of chest pain with negative troponins and because of previous multivessel PCI and recommending that we will do a stress echo and if this is normal she can be discharged. She has been counseled to quit smoking. . RELEVANT PAST MEDICAL HISTORY: Known history of CAD with previous PCI of RCA in 2015 which was patent in 2020 J at which time she had PCI of obtuse marginal 1. She has hypertension hyperlipidemia smoking COPD. She is status post chol ecystectomy.. MEDICATIONS: See chart ALLERGIES: See chart. REVIEW OF SYSTEMS: Remarkable for arthritic pains of left shoulder. She also has some degenerative joint disease type symptoms of the right shoulder. No hematemesis melena no genitourinary symptoms fever with chills or cough with expectoration. PHYSICIAL EXAM: Vital signs are stable blood pressure control has improved no JVD or carotid bruit S1-S2 heard normally no significant murmurs lungs revealed bilateral decent air entry abdomen is soft nontender lower extremities reveal palpable pulses no edema central nervous system is grossly within normal limits EKG is unremarkable for any ischemic changes and troponin levels are normal. IMPRESSION: 1. Atypical chest pain in a patient with known multivessel PCI. 2. Benign hypertension. 3. Hypercholesterolemia. 4. History of smoking and COPD. 5. . RECOMMENDATIONS: Counseled regarding the need to quit smoking. We will continue current medications increase activity hydrate her and perform a stress echo and if this is normal she can be discharged. She will follow-up with Dr. Fountain in one week. . Past Medical History Past Medical History: Coronary Artery Disease (CAD), Cancer, Hyperlipidemia, Hypertension Additional Past Medical History / Comment(s): breast cancer, hypoglycemia History of Any Multi-Drug Resistant Organisms: None Reported Past Surgical History: Adenoidectomy, Section, Cholecystectomy, Heart Catheterization With Stent, Tonsillectomy Past Anesthesia/Blood Transfusion Reactions: No Reported Reaction Date of Last Stent Placement:: 11/03/20 Past Psychological History: No Psychological Hx Reported Smoking Status: Current some day smoker Past Alcohol Use History: Rare Past Drug Use History: Marijuana - Past Family History Mother Family Medical History: COPD Additional Family Medical History / Comment(s): drug addict, overdosed approximately 4 years ago Medications and Allergies Home Medications Medication Instructions Recorded Confirmed Type RX: Aspirin 81 mg PO DAILY #30 chew 11/04/20 11/06/21 Rx RX: Atorvastatin [Lipitor] 80 mg PO DAILY 30 Days #30 tab 11/04/20 11/06/21 Rx RX: Clopidogrel [Plavix] 75 mg PO DAILY 30 Days #30 tab 11/04/20 11/06/21 Rx RX: Metoprolol Tartrate [Lopressor] 12.5 mg PO DAILY 30 Days #30 tab 11/04/20 11/06/21 Rx RX: Nitroglycerin Sl Tabs 0.4 mg SUBLINGUAL Q5M PRN 30 Days 11/04/20 11/06/21 Rx [Nitrostat] #30 tab Evolocumab [Repatha Sureclick] 140 mg SQ Q14D 11/06/21 11/06/21 History [place]-3/Dha/Epa/Fish Oil [Fish Oil 1 cap PO DAILY 11/06/21 11/06/21 History 1,000 mg Softgel] Allergies Allergy/AdvReac Type Severity Reaction Status Date / Time epinephrine Allergy Rash/Hives Verified 11/06/21 07:06 [From Epi E-Z Pen] venom-honey bee Allergy Unknown Verified 11/06/21 07:06 [bee venom (honey bee)] meperidine HCl [From Demerol] AdvReac "heart Verified 11/06/21 07:06 stopped" Physical Exam Vitals: Vital Signs Temp Pulse Pulse Resp BP BP Pulse Ox 11/06/21 07:00 97.7 F 60 12 111/76 98 11/06/21 06:41 60 16 106/71 98 11/06/21 05:00 60 16 98 11/06/21 01:00 62 16 113/70 96 11/05/21 21:48 98 F 66 19 143/92 99 Intake and Output 11/05/21 11/06/21 11/06/21 22:59 06:59 14:59 Other: Weight 68.039 kg 68.039 kg Results 11/05/21 22:35 11/05/21 22:35 Cardiac Enzymes 11/05/21 11/05/21 11/06/21 Range/Units 22:35 22:35 01:31 AST 18 (14-36) U/L Troponin I <0.012 <0.012 (0.000-0.034) ng/mL 11/06/21 Range/Units 04:46 AST (14-36) U/L Troponin I <0.012 (0.000-0.034) ng/mL Coagulation 11/05/21 Range/Units 22:35 PT 10.4 (9.0-12.0) sec APTT 25.0 (22.0-30.0) sec CBC 11/05/21 Range/Units 22:35 WBC 9.2 (3.8-10.6) k/uL RBC 4.25 (3.80-5.40) m/uL Hgb 14.0 (11.4-16.0) gm/dL Hct 42.0 (34.0-46.0) % Plt Count 248 (150-450) k/uL Comprehensive Metabolic Panel 11/05/21 Range/Units 22:35 Sodium 137 (137-145) mmol/L Potassium 3.8 (3.5-5.1) mmol/L Chloride 109 H (98-107) mmol/L Carbon Dioxide 25 (22-30) mmol/L BUN 9 (7-17) mg/dL Creatinine 0.58 (0.52-1.04) mg/dL Glucose 92 (74-99) mg/dL Calcium 8.3 L (8.4-10.2) mg/dL AST 18 (14-36) U/L ALT 13 (4-34) U/L Alkaline Phosphatase 70 (38-126) U/L Total Protein 5.7 L (6.3-8.2) g/dL Albumin 3.4 L (3.5-5.0) g/dL Current Medications Generic Name Dose Route Start Last Admin Trade Name Freq PRN Reason Stop Dose Admin Aspirin 81 mg 11/07/21 09:00 Aspirin 81 Mg PO DAILY [facility] Atorvastatin Calcium 80 mg 11/06/21 09:00 11/06/21 09:01 Atorvastatin 80 Mg Tab PO 80 mg DAILY ETHAN Administration Clopidogrel Bisulfate 75 mg 11/06/21 09:00 11/06/21 09:01 Clopidogrel 75 Mg Tab PO 75 mg DAILY ETHAN Administration Enoxaparin Sodium 40 mg 11/06/21 09:30 Enoxaparin 40 Mg/0.4 Ml Syringe SQ DAILY [facility] Sodium Chloride 1,000 mls @ 75 mls/hr 11/06/21 08:49 11/06/21 09:01 Saline 0.9% IV 11/06/21 22:08 75 mls/hr .[id number] STA Administration Metoprolol Tartrate 12.5 mg 11/06/21 09:00 Metoprolol Tartrate 12.5 Mg Tab PO DAILY [facility] Nicotine 1 patch 11/06/21 09:30 Nicotine 21mg/24hr Patch TRANSDERM DAILY [facility] Nitroglycerin 0.4 mg 11/06/21 00:26 Nitroglycerin Sl Tabs 0.4 Mg Tab SUBLINGUAL Q5M PRN Chest Pain Intake and Output 11/05/21 11/06/21 11/06/21 22:59 06:59 14:59 Other: Weight 68.039 kg 68.039 kg Patient Weight 11/07/21 06:59 Weight 68.039 kg 11/05/21 22:35 11/05/21 22:35
[2021-11-06] MEDS ORDERED: DOBUTamine DRIP for NUC MED 500 MG in DEXTROSE/WATER 1 250ML.BAG IV PRN (11:27)
--- NOTE | 2021-11-06 11:52 | US ---
EXAMINATION TYPE: US carotid duplex BILAT DATE OF EXAM: 11/06/2021 COMPARISON: NONE CLINICAL HISTORY: TIA. EXAM MEASUREMENTS: RIGHT: Peak Systolic Velocity (PSV) cm/sec ----- Right CCA: 79.9 ----- Right ICA: 104.0 ----- Right ECA: 91.6 ICA/CCA ratio: 1.3 RIGHT: End Diastole cm/sec ----- Right CCA: 29.2 ----- Right ICA: 46.8 ----- Right ECA: 24.7 LEFT: Peak Systolic Velocity (PSV) cm/sec ----- Left CCA: 86.1 ----- Left ICA: 108.0 ----- Left ECA: 108.0 ICA/CCA ratio: 1.3 LEFT: End Diastole cm/sec ----- Left CCA: 40.7 ----- Left ICA: 53.4 ----- Left ECA: 43.6 VERTEBRALS (direction of flow): Right Vertebral: Antegrade Left Vertebral: Antegrade Rhythm: Normal Grayscale, color Doppler, spectral Doppler imaging performed of the carotid arteries. Waveform analys is does not show significant stenosis. No significant stenosis seen. No elevated velocities. Incident al note is made of multiple thyroid nodules bilaterally. IMPRESSION: No hemodynamic significant stenosis of the proximal internal carotid arteries by Doppler criteria, an indirect measurement of carotid stenosis Criteria for Assigning % of Stenosis / Diameter reduction (Estimation based on the indirect measurements of the internal carotid artery velocities (ICA PSV). 1. Normal (no stenosis)=ICA PSV < 125 cm/s: ratio < 2.0: ICA EDV<40 cm/s. 2. Less than 50% stenosis=ICA PSV < 125 cm/s: ratio < 2.0: ICA EDV<40 cm/s. 3. 50 to 69% stenosis=ICA PSV of 125 to 230 cm/s: ration 2.0 ? 4.0: ICA EDV 40-100 cm/s. 4. Greater than 70% stenosis to near occlusion= ICA PSV > 230 cm/s: ratio > 4.0: ICA EDV > 100 cm/s. 5. Near occlusion= ICA PSV velocities may be low or undetectable: variable ratio and ICA EDV. 6. Total occlusion=unable to detect flow.
[2021-11-06] MEDS: NICOTINE 21MG/24HR PATCH TRANSDERM SCH (13:01)
[2021-11-06] MEDS: ENOXAPARIN 40 MG/0.4 ML SYRINGE SQ SCH (13:01)
[2021-11-06] MEDS: METOPROLOL TARTRATE 12.5 MG TAB PO SCH (13:03)
--- NOTE | 2021-11-06 13:04 | CA ---
Dobutamine Stress Echocardiogram Report Michelle Antony Age: 41 Gender: F : 1980 Exam Date: 11/06/2021 11:28 Exam Location: [facility] Ordering Physician: Sherry Connelly [facility], [facility]–1983 Referring Physician: RIGOBERTO,, [place]at [place]eller: Matty Prescott Technologist: Ht (in): 62 Wt (lb): 150 Procedure CPT: Indication: Chest Pain ICD-9 Codes: Rhythm: Patient History: CHEST PAIN, DIFFICULTY IN BREATHING, ANGINA, HTN, CHOLESTEROL, FAMILY HX OF HEART DISEASE, HX OF TOBACCO USE 0.25 PPD X 30 YEARS. PRIOR PA, PRIOR CARDIAC CATH (2) Cardiac Medications: Medications in past 24 hours: Contrast: Total Dose (mL): Stress Results Protocol: Peak Dose (???g/kg/min): Duration (min:sec): Atropine:(mg) Target HR: 150 Double Product: [id number] Resting HR: 62 Resting BP: 126 / 80 Peak HR: 150 Peak BP: 169 / 91 Max Predicted HR: 177 85 % Max Predicted HR Stress Summary: BP Response: Reason for Termination: Completion of Protocol Cardiac Symptoms: CHEST TIGHTNESS ECG Analysis Resting EKG: Stress EKG: Arrhythmia: Echo Analysis Base Echo Analysis: Low Echo Anaylsis: Peak Echo Analysis: Recovery Echo: MEASUREMENTS (Male/Female) Normal Values CONCLUSIONS Baseline EKG revealed normal sinus rhythm with mortgage criteria for LVH. Patient tried to walk but did not quite get a heart rate response and therefore this was switched to dobutamine. With the dobutamine administration the heart rate went up to 62- 150 bpm. EKG did not reveal any ST segment changes to indicate ischemia. There is no arrhythmia. By EKG criteria this is a unremarkable dobutamine stress test. Baseline echo revealed normal wall motion wall thickening of all segments. With dobutamine administration as per protocol there was progressive increase in contractility noted of all segments. There is no evidence suggest any ischemia on this dobutamine stress echocardiogram. Dr. Yoav Prince MD (Electronically Signed) Final Date: 06 November 2021 13:03
[2021-11-06 14:41] LABS: Chol/HDL Ratio 1.56 Ratio; LDL Cholesterol,Calculated 3.2 mg/dL (0.0-131.0); VLDL Calculation 16.86 mg/dL (5.00-40.00)
--- NOTE | 2021-11-06 16:55 | P.HPIM ---
History of Present Illness H&P Date: 11/06/21 Chief Complaint: Chest pain This is a pleasant 41-year-old patient, follows with Dr. Win. Chronic stable medical conditions include hypertension, hyperlipidemia, chronic nicotine dependence, history of coronary stent about a year ago. Patient continues to smoke about half a pack a day. Patient now presented with increasing pain in the left shoulder though she has a history of rotator cuff injury. She was at the [employer] store. [place] a bit dizzy took a nitroglycerin. [place] a bit nauseated. Decided to go home. At home patient started having increasing infraclavicular and then chest pressure. That lasted for a few hours. Decided to come in. Slight short of breath. No swelling of lower extremity. No perspiration. Patient also felt in the store that she was somewhat falling to the right. Review of systems: GEN.: Tired EYES: None HEENT: None NECK: None RESPIRATORY: As above CARDIOVASCULAR: As above GASTROINTESTINAL: None GENITOURINARY: None MUSCULOSKELETAL: [Shoulder pain LYMPHATICS: None HEMATOLOGICAL: None PSYCHIATRY: Bit anxious NEUROLOGICAL: None Past medical history to include: CAD with stent 1 year ago, hypertension, hyperlipidemia, breast cancer, Social history: Smokes one or 2 marijuana a day. Also smokes about half a pack a day. Was previously doing up to 2 packs a day. For about 30 years. 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 . Rare alcohol. Family history: COPD Physical examination: VITAL SIGNS: 97.7, 16, 12, 111/76, 98% room air GENERAL: BMI 27.4, sitting up, awake, comfortable. EYES: Pupils equal. Conjunctiva normal. HEENT: External appearance of nose and ears normal, oral cavity grossly normal. NECK: JVD not raised; masses not palpable. HEART: First and second heart sounds are normal; no edema. LUNGS: Respiratory rate normal; slightly decreased breath sounds. ABDOMEN: Soft, nontender, liver spleen not palpable, no masses palpable. PSYCH: Alert and oriented x3; mood and affect normal. MUSCULOSKELETAL:No Clubbing/cyanosis;muscles-grossly intact NEUROLOGICAL: Cranial nerves grossly intact; no facial asymmetry, power and sensation grossly intact. LYMPHATICS: No lymph nodes palpable in the axilla and neck INVESTIGATIONS, reviewed in the clinical context: White count 59.2 hemoglobin 14 platelets 248 potassium 3.89 creatinine 0.58 Troponin I less than 0.0123 LDL 3.2 EKG tracing personally reviewed by me-normal sinus rhythm. Rate 62 Chest x-ray film personally reviewed by me-some hyperinflation. Assessment and plan: -Possible unstable angina in a patient with known coronary artery disease stent Troponins are negative. EKG unremarkable. Stress test. -CAD with stent over a year ago Aspirin. Plavix. Lopressor. -Hyperlipidemia Repatha every 2 weeks -Essential hypertension Lopressor 12.5 by mouth daily -Chronic nicotine dependence, cigarette smoker Nicotine patch 14. -Mild COPD, asymptomatic. -Given episode of dizziness, and a temporary history of falling to the right. Motor MRI of the brain to rule out any subtle stroke. Aspirin. Lipitor. Aspirin Lipitor Plavix Lopressor nicotine patch. Stress test. MRI of the brain. Carotid Doppler. Smoke cessation counseling: This was done with the patient. Nicotine patch is being given. More than 3 minutes was spent for this Past Medical History Past Medical History: Coronary Artery Disease (CAD), Cancer, Hyperlipidemia, Hypertension Additional Past Medical History / Comment(s): breast cancer, hypoglycemia History of Any Multi-Drug Resistant Organisms: None Reported Past Surgical History: Adenoidectomy, Section, Cholecystectomy, Heart Catheterization With Stent, Tonsillectomy Past Anesthesia/Blood Transfusion Reactions: No Reported Reaction Date of Last Stent Placement:: 11/03/20 Past Psychological History: No Psychological Hx Reported Smoking Status: Current some day smoker Past Alcohol Use History: Rare Past Drug Use History: Marijuana - Past Family History Mother Family Medical History: COPD Additional Family Medical History / Comment(s): drug addict, overdosed approximately 4 years ago Medications and Allergies Home Medications Medication Instructions Recorded Confirmed Type Aspirin 81 mg PO DAILY #30 chew 11/04/20 11/06/21 Rx Atorvastatin [Lipitor] 80 mg PO DAILY 30 Days #30 tab 11/04/20 11/06/21 Rx Clopidogrel [Plavix] 75 mg PO DAILY 30 Days #30 tab 11/04/20 11/06/21 Rx Metoprolol Tartrate [Lopressor] 12.5 mg PO DAILY 30 Days #30 tab 11/04/20 11/06/21 Rx Nitroglycerin Sl Tabs [Nitrostat] 0.4 mg SUBLINGUAL Q5M PRN 30 Days 11/04/20 11/06/21 Rx #30 tab Evolocumab [Repatha Sureclick] 140 mg SQ Q14D 11/06/21 11/06/21 History [place]-3/Dha/Epa/Fish Oil [Fish Oil 1 cap PO DAILY 11/06/21 11/06/21 History 1,000 mg Softgel] Allergies Allergy/AdvReac Type Severity Reaction Status Date / Time epinephrine Allergy Rash/Hives Verified 11/06/21 07:06 [From Epi E-Z Pen] venom-honey bee Allergy Unknown Verified 11/06/21 07:06 [bee venom (honey bee)] meperidine HCl [From Demerol] AdvReac "heart Verified 11/06/21 07:06 stopped" Physical Exam Vitals: Vital Signs Temp Pulse Pulse Resp BP BP Pulse Ox 11/06/21 07:00 97.7 F 60 12 111/76 98 11/06/21 06:41 60 16 106/71 98 11/06/21 05:00 60 16 98 11/06/21 01:00 62 16 113/70 96 11/05/21 21:48 98 F 66 19 143/92 99 Intake and Output 11/05/21 11/06/21 11/06/21 22:59 06:59 14:59 Other: Weight 68.039 kg Results CBC & Chem 7: 11/05/21 22:35 11/05/21 22:35 Labs: Abnormal Lab Results - Last 24 Hours (Table) 11/05/21 Range/Units 22:35 Chloride 109 H (98-107) mmol/L Calcium 8.3 L (8.4-10.2) mg/dL Total Protein 5.7 L (6.3-8.2) g/dL Albumin 3.4 L (3.5-5.0) g/dL
--- NOTE | 2021-11-06 18:57 | MR ---
EXAMINATION TYPE: MR brain wo con DATE OF EXAM: 11/06/2021 6:45 PM COMPARISON: None. CLINICAL INDICATION:Female, 41 years old with history of poss cerebellar TIA; TECHNIQUE: Multi planar, multi sequence imaging was performed through the brain including: T1, T2, In version recovery, Diffusion weighted imaging, and gradient echo imaging. No gadolinium was given. FINDINGS: Cerebellum does not demonstrate signal abnormality or evidence for restricted diffusion. The hughes-white junctions, ventricular system, and cisterns appear unremarkable. Diffusion-weighted i maging shows no evidence of restricted diffusion. T The bone marrow signal is within normal limits. The paranasal sinuses demonstrate mucosal thickening within the left maxillary sinus with retention cyst present. IMPRESSION: No evidence of intracranial mass or acute/subacute infarct. .
[2021-11-06] MEDS: ACETAMINOPHEN TAB 325 MG TAB PO PRN (21:25)
[2021-11-07] MEDS: ACETAMINOPHEN TAB 325 MG TAB PO PRN ×3 (02:11→14:29)
[2021-11-07] MEDS: METOPROLOL TARTRATE 12.5 MG TAB PO SCH (08:13)
[2021-11-07] MEDS: CLOPIDOGREL 75 MG TAB PO SCH (08:13)
[2021-11-07] MEDS: ATORVASTATIN 80 MG TAB PO SCH (08:14)
[2021-11-07] MEDS: ENOXAPARIN 40 MG/0.4 ML SYRINGE SQ SCH ×2 (08:14→08:16)
[2021-11-07] MEDS: NICOTINE 21MG/24HR PATCH TRANSDERM SCH (08:16)
[2021-11-07] MEDS ORDERED: ASPIRIN 81 MG PO SCH (09:00)
[2021-11-07] MEDS ORDERED: ASPIRIN 325 MG TAB PO SCH (09:00)
--- NOTE | 2021-11-07 12:28 | XR ---
Left shoulder HISTORY: Acute pain 3 views of the left shoulder correlated to chest x-ray 11/05/2021 No acute fracture or dislocation. Alignment is maintained. Bone mineralization and joint spaces are w ithin normal limits. Left lung apex as visualized is normal. There is overlying lead present. IMPRESSION: No acute abnormality. Consider alternate imaging as indicated
[2021-11-07 13:51] VITALS: BP 120/81; PULSE 74; RESP 16; TEMP 98.5
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
--- NOTE | 2021-11-07 16:52 | P.DS ---
Providers Date of admission: 11/06/21 00:17 Expected date of discharge: 11/07/21 Attending physician: Marcos Chavira Consults: 11/06/21 00:17 Consult Physician Urgent Consulting Provider: Mariam Mercado Consult Reason/Comments: cp Do you want consulting provider notified?: Yes 11/07/21 10:10 Consult Physician Routine Consulting Provider: Jesse Calhoun Consult Reason/Comments: acute left shoulder pain Do you want consulting provider notified?: Yes Primary care physician: Vern Win [facility] Course: Chief Complaint: Chest pain This is a pleasant 41-year-old patient, follows with Dr. Win. Chronic stable medical conditions include hypertension, hyperlipidemia, chronic nicotine dependence, history of coronary stent about a year ago. Patient continues to smoke about half a pack a day. Patient now presented with increasing pain in the left shoulder though she has a history of rotator cuff injury. She was at the [employer] store. [place] a bit dizzy took a nitroglycerin. [place] a bit nauseated. Decided to go home. At home patient started having increasing infraclavicular and then chest pressure. That lasted for a few hours. Decided to come in. Slight short of breath. No swelling of lower extremity. No perspiration. Patient also felt in the store that she was somewhat falling to the right. November 07: Patient's dobutamine stress echocardiogram came back to be negative. Brain MRI was unremarkable. So was conducted Doppler. Results discussed with the patient. Patient having significant left shoulder pain. X-ray was ordered and orthopedic was consulted. At this pain pain management. Follow-up outpatient with them. Activity per orthopedics. Discussion and discharge planning more than 35 minutes. Past medical history to include: CAD with stent 1 year ago, hypertension, hyperlipidemia, breast cancer, Social history: Smokes one or 2 marijuana a day. Also smokes about half a pack a day. Was previously doing up to 2 packs a day. For about 30 years. 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 . Rare alcohol. Family history: COPD Physical examination: VITAL SIGNS: 98.5, 74, 16, 120/81, 100% room air GENERAL: sitting up, awake, comfortable. EYES: Pupils equal. Conjunctiva normal. HEENT: External appearance of nose and ears normal, oral cavity grossly normal. NECK: JVD not raised; masses not palpable. HEART: First and second heart sounds are normal; no edema. LUNGS: Respiratory rate normal; slightly decreased breath sounds. ABDOMEN: Soft, nontender, liver spleen not palpable, no masses palpable. PSYCH: Alert and oriented x3; mood and affect normal. MUSCULOSKELETAL:No Clubbing/cyanosis;muscles-grossly intact. Some limitation of movement on left shoulder. INVESTIGATIONS, reviewed in the clinical context: Left shoulder x-ray: Unremarkable Brain MRI: Unremarkable Dobutamine stress echocardiogram: Negative for area Carotid Doppler: Negative for stenosis White count 9.2 hemoglobin 14 platelets 248 potassium 3.89 creatinine 0.58 Troponin I less than 0.0123 LDL 3.2 EKG tracing personally reviewed by me-normal sinus rhythm. Rate 62 Chest x-ray film personally reviewed by me-some hyperinflation. Assessment and plan: -Anterior chest wall pain. Likely muscular skeletal. Dobutamine stress echocardiogram negative -CAD with stent over a year ago Aspirin. Plavix. Lopressor. -Hyperlipidemia Repatha every 2 weeks -Essential hypertension Lopressor 12.5 by mouth daily -Chronic nicotine dependence, cigarette smoker Nicotine patch 14. Patient counseled -Acute left shoulder sprain. Negative for fracture. Seen by orthopedics Dr. phyllis Torres. Outpatient follow-up. Pain medications when necessary -Mild COPD, asymptomatic. Disposition: Home Plan - Discharge Summary Discharge Rx Participant: No New Discharge Prescriptions: New Nicotine 21Mg/24Hr Patch [Habitrol] 1 patch TRANSDERM DAILY #14 patch Continue Nitroglycerin Sl Tabs [Nitrostat] 0.4 mg SUBLINGUAL Q5M PRN 30 Days #30 tab PRN Reason: Chest Pain [place]-3/Dha/Epa/Fish Oil [Fish Oil 1,000 mg Softgel] 1 cap PO DAILY Evolocumab [Repatha Sureclick] 140 mg SQ Q14D Atorvastatin [Lipitor] 80 mg PO DAILY 30 Days #30 tab Clopidogrel [Plavix] 75 mg PO DAILY 30 Days #30 tab Aspirin 81 mg PO DAILY #30 chew Metoprolol Tartrate [Lopressor] 12.5 mg PO DAILY 30 Days #30 tab Discharge Medication List Aspirin 81 mg PO DAILY #30 chew 11/04/20 [Rx] Atorvastatin [Lipitor] 80 mg PO DAILY 30 Days #30 tab 11/04/20 [Rx] Clopidogrel [Plavix] 75 mg PO DAILY 30 Days #30 tab 11/04/20 [Rx] Metoprolol Tartrate [Lopressor] 12.5 mg PO DAILY 30 Days #30 tab 11/04/20 [Rx] Nitroglycerin Sl Tabs [Nitrostat] 0.4 mg SUBLINGUAL Q5M PRN 30 Days #30 tab 11/04/20 [Rx] Evolocumab [Repatha Sureclick] 140 mg SQ Q14D 11/06/21 [History] [place]-3/Dha/Epa/Fish Oil [Fish Oil 1,000 mg Softgel] 1 cap PO DAILY 11/06/21 [History] Nicotine 21Mg/24Hr Patch [Habitrol] 1 patch TRANSDERM DAILY #14 patch 11/07/21 [Rx] Follow up Appointment(s)/Referral(s): Vern Win DO [Primary Care Provider] - 1-2 days Davidson Fountain DO [STAFF PHYSICIAN] - 11/14/21 9:45 am Bev Dorsey MD [STAFF PHYSICIAN] - 1 Week (thyroid nodule message left at office, if no call please call them to schedule) Jesse Calhoun MD [STAFF PHYSICIAN] - 1 Week Patient Instructions/Handouts: Chest Pain (ED), How to Stop Smoking (DC) Discharge Disposition: HOME SELF-CARE
== END 2021-11-07 16:33 | disposition home or self-care (01) ==
LOC: EC 21:42 → 6NMEDSUR 11-06 00:17
PROVIDERS: ADMIT Hospitalist; ATTEND Hospitalist
DX: R07.89 Other chest pain (principal); S46.912A Strain of unspecified muscle, fascia and tendon at shoulder and upper arm level, left arm, initial encounter; I25.10 Atherosclerotic heart disease of native coronary artery without angina pectoris; I10 Essential (primary) hypertension; E78.5 Hyperlipidemia, unspecified; E16.2 Hypoglycemia, unspecified; J44.9 Chronic obstructive pulmonary disease, unspecified; E78.00 Pure hypercholesterolemia, unspecified; R11.0 Nausea; R42 Dizziness and giddiness; F17.210 Nicotine dependence, cigarettes, uncomplicated; Z71.6 Tobacco abuse counseling; Z79.82 Long term (current) use of aspirin; Z79.02 Long term (current) use of antithrombotics/antiplatelets; Z79.899 Other long term (current) drug therapy; Z88.5 Allergy status to narcotic agent; Z88.8 Allergy status to other drugs, medicaments and biological substances; Z91.030 Bee allergy status; Z95.5 Presence of coronary angioplasty implant and graft; Z85.3 Personal history of malignant neoplasm of breast; Z90.49 Acquired absence of other specified parts of digestive tract; Z98.891 History of uterine scar from previous surgery; Z98.890 Other specified postprocedural states; Z82.5 Family history of asthma and other chronic lower respiratory diseases; Z81.3 Family history of other psychoactive substance abuse and dependence; X58.XXXA Exposure to other specified factors, initial encounter
CPT/HCPCS: 96360; 96361; 96372; 99291; 36415; 93005; 93351; 83880; 80061; 80053; 83690; 83735; 84484 ×2; 85025; 85610; 85730; 73030; 71046; 93880; 70551; G0378 ×2; J1650

== ENCOUNTER → 2022-03-14 | Outpatient (CLI) | payer OTHER ==
[2022-03-14 14:19] LABS: ALT 16 U/L (8-44); AST 18 U/L (13-35); Chol/HDL Ratio 1.81 Ratio; LDL Cholesterol,Calculated 26.4 mg/dL (0.0-131.0); VLDL Calculation 12.54 mg/dL (5.00-40.00)
== END | disposition home or self-care (01) ==
LOC: LABWHC1 09:20
PROVIDERS: ATTEND Internal Medicine
DX: E78.2 Mixed hyperlipidemia (principal)
CPT/HCPCS: 36415; 80061; 84450; 84460

== ENCOUNTER → 2023-04-05 | Outpatient (CLI) | payer OTHER ==
[2023-04-05 16:03] LABS: ALT 17 U/L (8-44); AST 17 U/L (13-35); Chol/HDL Ratio 2.45 Ratio; LDL Cholesterol,Calculated 47.9 mg/dL (0.0-131.0); VLDL Calculation 11.28 mg/dL (5.00-40.00)
== END | disposition home or self-care (01) ==
LOC: LABWHC1 08:08
PROVIDERS: ATTEND Internal Medicine
DX: E78.2 Mixed hyperlipidemia (principal)
CPT/HCPCS: 36415; 80061; 84450; 84460

== ENCOUNTER → 2023-12-11 | Outpatient (CLI) | payer SELFPAY ==
[2023-12-11 15:51] LABS: ALT 11 U/L (8-44); Chol/HDL Ratio 3.82 Ratio; VLDL Calculation 15.26 mg/dL (5.00-40.00)
[2023-12-11 15:52] LABS: AST 18 U/L (13-35)
== END | disposition home or self-care (01) ==
LOC: LABWHC1 11:25
PROVIDERS: ATTEND Nurse Practitioner Acute Care
DX: E78.2 Mixed hyperlipidemia (principal)
CPT/HCPCS: 36415; 80061; 84450; 84460

== ENCOUNTER → 2024-12-19 | Outpatient (CLI) | payer OTHER ==
[2024-12-19 14:59] LABS: ALT 13 U/L (8-44); AST 17 U/L (13-35); Cholesterol 126.00 mg/dL (0.00-200.00); HDL Cholesterol 32.50 mg/dL (40.00-60.00); LDL Cholesterol,Calculated 75.2 mg/dL (0.0-131.0); Triglycerides 91.40 mg/dL (0.00-149.00); VLDL Calculation 18.28 mg/dL (5.00-40.00)
== END | disposition home or self-care (01) ==
LOC: LABWHC1 07:34
PROVIDERS: ATTEND Internal Medicine
DX: E78.2 Mixed hyperlipidemia (principal)
CPT/HCPCS: 36415; 80061; 84450; 84460